=== PATIENT | male | born 1965 | race Caucasian/White ===

== ENCOUNTER 2023-11-02 09:24 | Emergency (ER) | payer BC ==
[2023-11-02 09:33] VITALS: TEMP 97.5
[2023-11-02] MEDS: SODIUM CHLORIDE 0.9% 1,000 ML IV STA (09:56)
[2023-11-02] MEDS: DILTIAZEM 125 MG in SODIUM CHLORIDE 0.9% 100 ML IV SCH (10:12)
[2023-11-02] MEDS: DILTIAZEM DRIP BOLUS FROM BAG 1 MG SOLN IV ONE (10:12)
[2023-11-02 10:19] LABS: ALT 29 U/L (4-49); AST 40 U/L (17-59); African American GFR (CKD) 76 (>60 ml/min/1.73 sqM); Albumin 4.8 g/dL (3.5-5.0); Alkaline Phosphatase 133 U/L (38-126); Anion Gap 11 mmol/L; Blood Urea Nitrogen 14 mg/dL (9-20); Calcium 10.1 mg/dL (8.4-10.2); Carbon Dioxide 27 mmol/L (22-30); Chloride 100 mmol/L (98-107); Glucose 318 mg/dL (74-99); Magnesium 1.5 mg/dL (1.6-2.3); Non-African American GFR(CKD) 65 (>60 ml/min/1.73 sqM); Potassium 3.4 mmol/L (3.5-5.1); Sodium 138 mmol/L (137-145); Total Bilirubin 1.5 mg/dL (0.2-1.3); Total Protein 7.6 g/dL (6.3-8.2)
[2023-11-02 10:20] LABS: Partial Thromboplastin Time 24.8 sec (22.0-30.0); Prothrombin Time 11.2 sec (10.0-12.5)
--- NOTE | 2023-11-02 10:33 | XR ---
EXAMINATION TYPE: XR chest 2V DATE OF EXAM: 11/02/2023 10:20 AM CLINICAL INDICATION:Male, 58 years old with history of dysrhythmia; [facility] COMPARISON: None TECHNIQUE: XR chest 2V. Frontal and lateral views of the chest.. FINDINGS: Lines/Tubes/Devices: No indwelling lines are seen. Heart/mediastinum: Heart size is normal. Mediastinum appears normal. Pulmonary vascularity: Not increased, Lungs/Pleura: Lungs appear hyperinflated with interstitial coarsening, findings suggestive of COPD/em physema. There is no evidence of pleural effusion, focal consolidation, or pneumothorax. Musculoskeletal: No acute osseous abnormality demonstrated in the limits of the exam. Other findings: None. IMPRESSION: No acute cardiopulmonary abnormality.
[2023-11-02 10:35] LABS: Basophils # (A) 0.1 k/uL (0-0.2); Basophils % (A) 1 %; Eosinophils # (A) 0.2 k/uL (0-0.7); Eosinophils % (A) 2 %; HCT 43.6 % (39.0-53.0); HGB 15.4 gm/dL (13.0-17.5); Lymphocytes % (A) 24 %; MCH 30.6 pg (25.0-35.0); MCHC 35.4 g/dL (31.0-37.0); MCV 86.4 fL (80.0-100.0); Mean Platelet Volume 8.9; Monocytes # (A) 0.8 k/uL (0-1.0); Monocytes % (A) 10 %; Neutrophils # (A) 5.4 k/uL (1.3-7.7); Neutrophils % (A) 63 %; Platelet Count 192 k/uL (150-450); RBC 5.05 m/uL (4.30-5.90); RDW 12.5 % (11.5-15.5); WBC 8.7 k/uL (3.8-10.6)
--- NOTE | 2023-11-02 11:19 | ED ---
Chest Pain HPI - General Chief Complaint: Chest Pain Stated Complaint: pain L side,dizzy spells Time Seen by Provider: 11/02/23 09:31 Source: patient Mode of arrival: ambulatory Limitations: no limitations - History of Present Illness Initial Comments: 58-year-old male presents emergency department reporting lightheadedness and some chest tightness. Symptoms started prior to hospital arrival. Patient felt as if his heart was beating fast and he could take a deep breath in. He reports that he has had several episodes previously in the past similar in nature however they self resolved rapidly. He states he has never been evaluated for these episodes. Today the episode would not go away and therefore he decided to seek care. He denies previous history of any cardiac disease. No recent illnesses. No recent medication changes. He has been taking all his medications as directed. No other alleviating, precipitating or modifying factors - Related Data Home Medications Medication Instructions Recorded Confirmed Cholecalciferol [Vitamin D3 (25 50 mcg PO HS 11/02/23 11/02/23 Mcg = 1000 Iu)] Losartan Potassium 100 mg PO HS 11/02/23 11/02/23 Metoprolol Succinate (ER) [Toprol 100 mg PO HS 11/02/23 11/02/23 Xl] Semaglutide [Rybelsus] 7 mg PO AC-BRKFST 11/02/23 11/02/23 Simvastatin [Zocor] 10 mg PO HS 11/02/23 11/02/23 amLODIPine [Norvasc] 5 mg PO HS 11/02/23 11/02/23 metFORMIN HCL [Glucophage] 500 mg PO HS 11/02/23 11/02/23 Previous Rx's Medication Instructions Recorded Magnesium Oxide [Mag-Ox] 400 mg PO DAILY #30 tablet 11/02/23 Allergies Allergy/AdvReac Type Severity Reaction Status Date / Time No Known Allergies Allergy Verified 11/02/23 11:27 Review of Systems ROS Statement: Those systems with pertinent positive or pertinent negative responses have been documented in the HPI. ROS Other: All systems not noted in ROS Statement are negative. Past Medical History Past Medical History: Diabetes Mellitus, Hyperlipidemia, Hypertension History of Any Multi-Drug Resistant Organisms: None Reported Past Surgical History: Orthopedic Surgery, Tonsillectomy Additional Past Surgical History / Comment(s): right hand Past Psychological History: No Psychological Hx Reported Smoking Status: Never smoker Past Alcohol Use History: Occasional Past Drug Use History: None Reported General Exam Limitations: no limitations General appearance: alert, in no apparent distress Head exam: Present: atraumatic, normocephalic, normal inspection Eye exam: Present: normal appearance, PERRL, EOMI. Absent: scleral icterus, conjunctival injection, periorbital swelling ENT exam: Present: normal exam, mucous membranes moist Neck exam: Present: normal inspection. Absent: tenderness, meningismus, lymphadenopathy Respiratory exam: Present: normal lung sounds bilaterally. Absent: respiratory distress, wheezes, rales, rhonchi, stridor Cardiovascular Exam: Present: normal rhythm, tachycardia, normal heart sounds. Absent: systolic murmur, diastolic murmur, rubs, gallop, clicks GI/Abdominal exam: Present: soft, normal bowel sounds. Absent: distended, tenderness, guarding, rebound, rigid Extremities exam: Present: normal inspection, full ROM, normal capillary refill. Absent: tenderness, pedal edema, joint swelling, calf tenderness Back exam: Present: normal inspection Neurological exam: Present: alert, oriented X3, CN II-XII intact Psychiatric exam: Present: normal affect, normal mood Skin exam: Present: warm, dry, intact, normal color. 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 sent in by a medical professional or institution (, PA, LOAN PROCESSING SUPERVISOR, urgent care, hospital, or care home...) When possible be specific @ -No Did you speak to anyone other than the patient for history (EMS, parent, family, police, friend...)? What history was obtained from this source @ -No Did you review nursing and triage notes (agree or disagree)? Why? @ -I reviewed and agree with nursing and triage notes Were old charts reviewed (outside hosp., previous admission, EMS record, old EKG, old radiological studies, urgent care reports/EKG's, care home records)? Report findings @ -No old charts were reviewed Differential Diagnosis (chest pain, altered mental status, abdominal pain women, abdominal pain men, vaginal bleeding, weakness, fever, dyspnea, syncope, headache, dizziness, GI bleed, back pain, seizure, CVA, palpatations, mental health, musculoskeletal)? @ -Differential Palpitations Ventricular arrhythmias, atrial arrhythmias, myocardial infarction, anemia, thyrotoxicosis, electrolyte imbalance, hypokalemia, pulmonary embolism, pulmonary disease, drugs, alcohol, anxiety, stress.... This is not meant to be an all-inclusive list. EKG interpreted by me (3pts min.). @ -Yes first EKG done at 934 demonstrates supraventricular tachycardia 172 for rate. QRS 80. QTc of 288. Some ST depression inferior anterior and lateral leads. Likely rate dependent. Repeat EKG which was completed at 944 demonstrates continued tachycardia with a rate of 154. OK interval 94. QRS 106. QTc of 391. No acute ST segment elevations Repeat EKG at 10:06 AM demonstrates sinus rhythm with a first-degree AV block. Rate of 96. Parable 233. QRS 94. QTc of 432. No acute ST segment elevations or depressions X-rays interpreted by me (1pt min.). @ -Yes and demonstrates no acute process CT interpreted by me (1pt min.). @ -None done U/S interpreted by me (1pt. min.). @ -None done What testing was considered but not performed or refused? (CT, X-rays, U/S, labs)? Why? @ -None What meds were considered but not given or refused? Why? @ -Adenosine and Cardizem were considered however patient converted without either medication Did you discuss the management of the patient with other professionals (professionals i.e. , PA, LOAN PROCESSING SUPERVISOR, lab, RT, psych nurse, social media marketing specialist, interactive media marketing strategist, teacher, sailing officer, caseworker)? Give summary @ -Spoke with Dr. Sales in regards to the patient's presenting diagnosis Was smoking cessation discussed for >3mins.? @ -No Was critical care preformed (if so, how long)? @ -Yes, 30 minutes for management of SVT Were there social determinants of health that impacted care today? How? ( Homelessness, low income, unemployed, alcoholism, drug addiction, transportation, low edu. Level, literacy, decrease access to med. care, correction, rehab)? @ -No Was there de-escalation of care discussed even if they declined (Discuss DNR or withdrawal of care, Hospice)? DNR status @ -No What co-morbidities impacted this encounter? (DM, HTN, Smoking, COPD, CAD, Cancer, CVA, ARF, Chemo, Hep., AIDS, mental health diagnosis, sleep apnea, morbid obesity)? @ -None Was patient admitted / discharged? Hospital course, mention meds given and route, prescriptions, significant lab abnormalities, going to OR and other pertinent info. @ -Upon arrival patient was seen and evaluated in room 2. Thorough history and physical exam was performed. Patient arrives with a rapid heart rate. He is placed on continuous pulse ox and cardiac monitoring. Patient's heart rate is anywhere from 150-180. Patient placed on cardiac pads. He was going to be administered adenosine 6 mg however he does have improvement to his heart rate down to the 140s with vagal maneuvers. Rhythm is possibly more consistent with an a flutter and therefore Cardizem was ordered. The nurse attempted to initiate the medication however the patient spontaneously converts on his own. I did call and speak with Dr. Sales in regards to the patient's condition. As the patient is out of SVT at this time (AVNRT vs aflutter), patient may be discharged home. Patient is taking 100 mg metoprolol every day. I did discuss changing this medication to assist with rate control. Patient states he has had several episodes in the past of similar nature. He states this was the first only time that he was unable to convert himself. He feels comfortable going home at this time and following up with the cardiology office for further management of his rapid heart rhythm. Informed the patient he will likely need EP study. Patient was agreeable to this. Asked him to return for any new or worsening symptoms. Patient discharged in stable condition Undiagnosed new problem with uncertain prognosis? @ -No Drug Therapy requiring intensive monitoring for toxicity (Heparin, Nitro, Insulin, Cardizem)? @ -No Were any procedures done? @ -No Diagnosis/symptom? @ -Acute palpitations, acute SVT Acute, or Chronic, or Acute on Chronic? @ -Acute Uncomplicated (without systemic symptoms) or Complicated (systemic symptoms)? @ -Complicated Side effects of treatment? @ -No Exacerbation, Progression, or Severe Exacerbation? @ -No Poses a threat to life or bodily function? How? (Chest pain, [place], [place], pneumonia, PE, COPD, DKA, ARF, appy, cholecystitis, CVA, Diverticulitis, Homicidal, Suicidal, threat to staff... and all critical care pts) @ -Yes as patient did have a rapid heart rate Disposition Clinical Impression: SVT (supraventricular tachycardia), Hypomagnesemia Disposition: HOME SELF-CARE Condition: Stable Instructions (If sedation given, give patient instructions): Supraventricular Tachycardia (ED) Additional Instructions: Please take the magnesium supplement every day. Continue taking your home medications as they are instructed. Follow-up with the cardiology office for further testing to include EP study. Return for any new or worsening symptoms Prescriptions: Magnesium Oxide [Mag-Ox] 400 mg PO DAILY #30 tablet Is patient prescribed a controlled substance at d/c from ED?: No Referrals: Vitor Fuentes [Primary Care Provider] - 1-2 days [facility] [Provider Group] - 1-2 days Time of Disposition: 11:48
[2023-11-02 11:59] VITALS: BP 145/88; PULSE 68; RESP 16
== END 2023-11-02 12:03 | disposition home or self-care (01) ==
LOC: EC 09:24
DX: I47.10 Supraventricular tachycardia, unspecified (principal); E83.42 Hypomagnesemia; R00.2 Palpitations
CPT/HCPCS: 36415; 71046; 80053; 83735; 84443; 84484; 85025; 85379; 85610; 85730; 93005; 96360; 99291